=== PATIENT | male | born 1975 | race Caucasian/White ===

== ENCOUNTER 2018-04-06 16:55 | Emergency (ER) | payer OTHER ==
[~2018-04-06] VITALS: Wt 111.1 kg
[~2018-04-06 16:55] MED LIST: ADDERALL15 MG; ANAPROX DS550 MG PO; ANAPROX275 MG PO; ATARAX,VISTARIL50 MG PO; ATARAX25 MG PO; ATIVAN1 MG PO; AUGMENTIN 875 M1 TAB PO; BACTRIM DS 8001 TA1 PO; CARBIDOPA/LEVOD1 TA1 PO; CIPRODEX 0.3%-7.5 ML OT; CLARITIN10 MG PO; COMPAZINE10 MG PO; CORTISPORIN SUS10 ML OT; CYCLOBENZAPRINE10 MG PO; CYCLOBENZAPRINE5 M3 PO; DAYPRO600 M1 PO; ELIMITE 5%60 GM PO; FLAGYL500 MG PO; FLEXERIL10 MG PO; HYDROCODONE BIT1 T11 PO; KEFLEX500 MG PO; MEDROL DOSEPAK4 MG PO; MIRALAX POWDER255 GM PO; MOTRIN800 MG PO; MULTIPLE VITAMI1 CAP PO; Motrin,Rufen800 MG PO; NAPROSYN500 MG PO; PERCOCET 325 MG1 TA4 PO; PREDNISONE20 MG PO; PROCTOSOL HC RC; PROTONIX40 MG PO; PROVENTIL0.09 MG/AC IH; ROBAXIN750 MG PO; SUBOXONE 8 MG-1 EACH SL; SUBOXONE 8 MG-21 TA1 SL; SUBOXONE 8 MG-21 TA2 SL; SUBOXONE 8 MG-21 TA3; TRAMADOL HCL50 MG PO; TRIMOX500 MG PO; ULTRAM50 MG PO; VICODIN 5/500 505 MG PO; VICODIN 500 MG-1 TAB PO; VICODIN ES 7501 TAB PO; ZANTAC150 MG PO; ZITHROMAX Z PA250 MG PO; ZOFRAN 4 MG ED2 TAB PO; ZOFRAN ODT4 MG SL; ZOFRAN4 MG PO
[2018-04-06] MEDS ORDERED: NAPROSYN500 MG PO (17:06)
== END 2018-04-06 18:00 | disposition home or self-care (01) ==
LOC: ED 16:55
DX: S83.92XA Sprain of unspecified site of left knee, initial encounter (principal); S93.402A Sprain of unspecified ligament of left ankle, initial encounter; K21.9 Gastro-esophageal reflux disease without esophagitis; F14.10 Cocaine abuse, uncomplicated; F17.200 Nicotine dependence, unspecified, uncomplicated; F12.10 Cannabis abuse, uncomplicated; F11.10 Opioid abuse, uncomplicated; R03.0 Elevated blood-pressure reading, without diagnosis of hypertension; M89.9 Disorder of bone, unspecified; Z79.899 Other long term (current) drug therapy; W01.0XXA Fall on same level from slipping, tripping and stumbling without subsequent striking against object, initial encounter; Y93.89 Activity, other specified; Y92.89 Other specified places as the place of occurrence of the external cause; Y99.8 Other external cause status

== ENCOUNTER 2018-09-18 20:59 | Inpatient (IN) | payer OTHER ==
[~2018-09-18] VITALS: Ht 185.4 cm; Wt 111.1 kg
--- NOTE | ~2018-09-18 | EKG ---
[place], [place] ELECTROCARDIOGRAM REPORT NAME: KENN KRISHNAN UNIT #: [id number] ROOM: 407 DOCTOR: NADREINA DRAFT REPORT BIRTHDATE: [birth year] [facility] Test Date: 2018-09-18 Test Time: 21:37:26 Pat Name: KENN KRISHNAN Department: 4E Room: 407 Gender: M [employer]al [employer] Tech: [place] : 1975 Requested By: ALLISON GILBERT DNP Order Number: [id number] Reading MD: Paige Sauer MD Measurements Intervals [place] Rate: 74 P: 14 IL: 198 QRS: 17 QRSD: 114 T: 31 QT: 397 QTc: 441 Interpretive Statements Sinus rhythm Incomplete right bundle branch block Electronically Signed On 09-22-2018 11:08:37 PST by Paige Sauer MD CM:EKGRPT:ELECTROCARDIOGRAM REPORT 1108 ALLISON GILBERT DNP EPIPHANY DRAFT REPORT ALLISON GILBERT DNP
--- NOTE | ~2018-09-18 | EKG ---
[place], [place] ELECTROCARDIOGRAM REPORT NAME: KENN KRISHNAN UNIT #: [id number] ROOM: 407 DOCTOR: ANDREINA DRAFT REPORT BIRTHDATE: [birth year] [facility] Test Date: 2018-09-21 Test Time: 12:00:33 Pat Name: KENN KRISHNAN Department: Room: 407 2 Gender: M Crew Attendant: : 1975 Requested By: CARLIN JOAQUIN Order Number: [id number] Reading MD: Paige Sauer MD Measurements Intervals [place] Rate: 59 P: 11 IN: 270 QRS: 32 QRSD: 115 T: 38 QT: 415 QTc: 412 Interpretive Statements Sinus rhythm Prolonged IN interval Incomplete right bundle branch block ST elev, probable normal early repol pattern Electronically Signed On 09-22-2018 11:10:34 PST by Paige Sauer MD CM:EKGRPT:ELECTROCARDIOGRAM REPORT 1200 [id number] KOLBY MATIAS DRAFT REPORT CARLIN JOAQUIN DPM
[2018-09-18 21:07] VITALS: BP 144/78
[2018-09-18 21:44] LABS: BILIRUBIN NEGATIVE (NEGATIVE); BLOOD TRACE-INTACT (NEGATIVE); CLARITY CLEAR (CLEAR); COLOR YELLOW (YELLOW); GLUCOSE NEGATIVE (NEGATIVE); KETONE NEGATIVE (NEGATIVE); LEUKO ESTERASE NEGATIVE (NEGATIVE); NITRITE NEGATIVE (NEGATIVE); PH 6.5 (5.0-9.0); SPECIFIC GRAVITY 1.015 (1.005-1.030)
[2018-09-18 21:54] LABS: URINE AMPHETAMINES < 1000 (1000ng/ml); URINE BARBITURATES < 200 (200ng/ml); URINE BENZODIAZEPINES < 200 (200ng/ml); URINE CANNABINOIDS (THC) < 50 (50ng/ml); URINE COCAINE < 300 (300ng/ml); URINE METHADONE < 300 (300ng/ml); URINE OPIATES < 300 (300ng/ml)
[2018-09-18 21:55] LABS: URINE PHENCYCLIDINE < 25 (25ng/ml)
[2018-09-18 22:01] LABS: BACTERIA 1+; EPITHELIAL CELLS 0-2; MUCOUS TRACE; WBC 0-2 wbc/hpf (0-5)
[2018-09-18 22:23] LABS: BASO # 0.1 10*3/uL (0.0-0.1); BASO % 1.1 % (0.0-1.0); EOS # 0.2 10*3/uL (0.0-0.4); EOS % 1.6 % (1.0-4.0); HEMATOCRIT 43.7 % (42.0-52.0); HEMOGLOBIN 14.5 g/dl (14.0-18.0); LYMPH # 2.4 10*3/uL (1.3-4.4); LYMPH % 23.8 % (27.0-41.0); MEAN CELL VOLUME 87.1 fl (80.0-94.0); MEAN CORPUSCULAR HGB 28.9 pg (27.0-31.0); MEAN CORPUSCULAR HGB CONC 33.2 g/dl (33.0-37.0); MEAN PLATELET VOLUME 10.3 fl (9.6-12.3); MONO # 0.5 10*3/uL (0.1-1.0); NEUT # 6.8 10*3/uL (2.3-7.9); NEUT % 68.2 % (47.0-73.0); PLATELET COUNT AUTOMATED 374 10*3/uL (130-400); RED BLOOD COUNT 5.02 10*6/uL (4.50-5.90); RED CELL DISTRI WIDTH 12.7 % (0-14.5)
[2018-09-18 22:41] LABS: ALBUMIN 4.2 gm/dl (3.1-4.5); ALKALINE PHOSPHATASE 89 U/L (45-117); BUN 13 mg/dl (7-24); CHLORIDE 102 mmol/L (98-107); CREATININE 0.93 mg/dL (0.70-1.30); POTASSIUM 3.6 mmol/L (3.5-5.1); SGOT/AST 18 IU/L (3-35); SGPT/ALT 28 U/L (12-78); SODIUM 138 mmol/L (136-145)
[2018-09-18 22:45] LABS: ACETAMINOPHEN (TYLENOL) < 2.0 ug/ml (10-30); ETHYL ALCOHOL < 3.0 mg/dl (<3); TROPONIN I < 0.015 ng/ml (<0.045)
[2018-09-19] VITALS: BP 119/63
[2018-09-19 08:00] VITALS: BP 142/77
[2018-09-19 16:00] VITALS: BP 128/72
[2018-09-19 20:00] VITALS: BP 132/61
[2018-09-20] VITALS: BP 125/70
[2018-09-20 08:00] VITALS: BP 133/70
[2018-09-20 12:00] VITALS: BP 130/80
[2018-09-20 16:00] VITALS: BP 127/71
[2018-09-20 20:00] VITALS: BP 150/82
[2018-09-21] VITALS: BP 150/66
[2018-09-21 06:48] LABS: BASO # 0.1 10*3/uL (0.0-0.1); BASO % 1.6 % (0.0-1.0); EOS # 0.5 10*3/uL (0.0-0.4); EOS % 5.4 % (1.0-4.0); HEMATOCRIT 45.4 % (42.0-52.0); HEMOGLOBIN 14.7 g/dl (14.0-18.0); LYMPH # 3.1 10*3/uL (1.3-4.4); LYMPH % 35.1 % (27.0-41.0); MEAN CORPUSCULAR HGB 28.5 pg (27.0-31.0); MEAN CORPUSCULAR HGB CONC 32.4 g/dl (33.0-37.0); MEAN PLATELET VOLUME 10.5 fl (9.6-12.3); MONO # 0.4 10*3/uL (0.1-1.0); MONO % 4.6 % (3.0-9.0); NEUT # 4.6 10*3/uL (2.3-7.9); PLATELET COUNT AUTOMATED 328 10*3/uL (130-400); RED BLOOD COUNT 5.16 10*6/uL (4.50-5.90); RED CELL DISTRI WIDTH 12.5 % (0-14.5); WHITE BLOOD COUNT 8.7 10*3/uL (4.8-10.8)
[2018-09-21 07:15] LABS: CREATININE 0.93 mg/dL (0.70-1.30)
[2018-09-21 08:00] VITALS: BP 140/72
[2018-09-21 11:56] VITALS: BP 132/74
[2018-09-21 16:00] VITALS: BP 127/74
[2018-09-21 20:00] VITALS: BP 137/77
[2018-09-22] VITALS: BP 125/81
[2018-09-22 06:23] LABS: BASO # 0.1 10*3/uL (0.0-0.1); BASO % 1.4 % (0.0-1.0); EOS # 0.5 10*3/uL (0.0-0.4); HEMATOCRIT 43.1 % (42.0-52.0); HEMOGLOBIN 14.3 g/dl (14.0-18.0); LYMPH # 2.5 10*3/uL (1.3-4.4); LYMPH % 31.8 % (27.0-41.0); MEAN CELL VOLUME 86.5 fl (80.0-94.0); MEAN CORPUSCULAR HGB 28.7 pg (27.0-31.0); MEAN CORPUSCULAR HGB CONC 33.2 g/dl (33.0-37.0); MEAN PLATELET VOLUME 10.2 fl (9.6-12.3); MONO # 0.5 10*3/uL (0.1-1.0); NEUT # 4.3 10*3/uL (2.3-7.9); NEUT % 54.4 % (47.0-73.0); PLATELET COUNT AUTOMATED 314 10*3/uL (130-400); RED BLOOD COUNT 4.98 10*6/uL (4.50-5.90); RED CELL DISTRI WIDTH 12.5 % (0-14.5); WHITE BLOOD COUNT 7.8 10*3/uL (4.8-10.8)
[2018-09-22 06:35] LABS: BUN 13 mg/dl (7-24); CHLORIDE 105 mmol/L (98-107); CREATININE 0.82 mg/dL (0.70-1.30); SODIUM 140 mmol/L (136-145)
[2018-09-22 08:00] VITALS: BP 146/84
== END 2018-09-22 10:50 | disposition left against medical advice (07) | DRG 894 ==
LOC: ED 20:59 → 4E 21:32 → EDHOLD 21:32 → 4E 21:53
PROVIDERS: Emergency Medicine Emergency Medical Services; Nurse Practitioner Family; Podiatrist Primary Podiatric Medicine
DX: F11.23 Opioid dependence with withdrawal (principal); K21.9 Gastro-esophageal reflux disease without esophagitis; E66.9 Obesity, unspecified; F41.9 Anxiety disorder, unspecified; Z53.21 Procedure and treatment not carried out due to patient leaving prior to being seen by health care provider; G25.81 Restless legs syndrome; F90.9 Attention-deficit hyperactivity disorder, unspecified type; R03.0 Elevated blood-pressure reading, without diagnosis of hypertension; R82.71 Bacteriuria; R31.29 Other microscopic hematuria; Z72.0 Tobacco use; Z71.6 Tobacco abuse counseling; Z83.3 Family history of diabetes mellitus; Z68.32 Body mass index [BMI] 32.0-32.9, adult

== ENCOUNTER 2019-12-21 16:56 | Inpatient (IN) | payer OTHER ==
[~2019-12-21] VITALS: Ht 185.4 cm; Wt 117.0 kg
[2019-12-21 17:15] VITALS: BP 156/88
[2019-12-21 18:30] LABS: BASO # 0.1 10*3/uL (0.0-0.1); BASO % 1.1 % (0.0-1.0); EOS # 0.2 10*3/uL (0.0-0.4); EOS % 1.9 % (1.0-4.0); LYMPH # 2.2 10*3/uL (1.3-4.4); MEAN CELL VOLUME 89.2 fl (80.0-94.0); MEAN CORPUSCULAR HGB 29.7 pg (27.0-31.0); MEAN CORPUSCULAR HGB CONC 33.3 g/dl (33.0-37.0); MEAN PLATELET VOLUME 10.3 fl (9.6-12.3); MONO # 0.7 10*3/uL (0.1-1.0); MONO % 5.6 % (3.0-9.0); PLATELET COUNT AUTOMATED 351 10*3/uL (130-400); RED BLOOD COUNT 4.71 10*6/uL (4.50-5.90); WHITE BLOOD COUNT 12.3 10*3/uL (4.8-10.8)
[2019-12-21 18:41] LABS: INTERNATIONAL NORM RATIO 0.9 (2.0-3.5)
[2019-12-21 18:45] LABS: ALBUMIN 4.1 gm/dl (3.1-4.5); ALKALINE PHOSPHATASE 70 U/L (45-117); BUN 17 mg/dl (7-24); CHLORIDE 108 mmol/L (98-107); POTASSIUM 3.8 mmol/L (3.5-5.1); SGOT/AST 24 IU/L (3-35); SGPT/ALT 56 U/L (12-78); SODIUM 143 mmol/L (136-145); TOTAL PROTEIN 7.4 gm/dL (6.4-8.2)
[2019-12-21 18:47] LABS: ETHYL ALCOHOL < 3.0 mg/dl (<3)
[2019-12-21 19:12] LABS: URINE AMPHETAMINES < 1000 (1000ng/ml); URINE BARBITURATES < 200 (200ng/ml); URINE BENZODIAZEPINES < 200 (200ng/ml); URINE CANNABINOIDS (THC) < 50 (50ng/ml); URINE COCAINE < 300 (300ng/ml); URINE METHADONE < 300 (300ng/ml); URINE OPIATES < 300 (300ng/ml); URINE PHENCYCLIDINE < 25 (25ng/ml)
[2019-12-21 19:20] LABS: BILIRUBIN NEGATIVE (NEGATIVE); BLOOD 1+ (NEGATIVE); CLARITY CLEAR (CLEAR); COLOR YELLOW (YELLOW); GLUCOSE NEGATIVE (NEGATIVE); KETONE NEGATIVE (NEGATIVE); LEUKO ESTERASE NEGATIVE (NEGATIVE); NITRITE NEGATIVE (NEGATIVE); SPECIFIC GRAVITY 1.025 (1.005-1.030); UROBILINOGEN 0.2 E.U./dl (0.2-1.0); WBC 0-2 wbc/hpf (0-5)
[2019-12-21 20:25] VITALS: BP 150/82
[2019-12-21] MEDS ORDERED: AMPHETAMINE/DEX30 MG PO (21:08)
[2019-12-22] VITALS: BP 148/93
[2019-12-22 00:30] VITALS: BP 148/88
[2019-12-22 04:00] VITALS: BP 112/70
== END 2019-12-22 07:58 | disposition left against medical advice (07) | DRG 770 ==
LOC: ED 16:56 → EDHOLD 17:40 → 5E 18:52
PROVIDERS: Family Medicine; Internal Medicine; ADMIT Internal Medicine
DX: F11.23 Opioid dependence with withdrawal (principal); F17.210 Nicotine dependence, cigarettes, uncomplicated; F41.9 Anxiety disorder, unspecified; F90.9 Attention-deficit hyperactivity disorder, unspecified type; Z53.29 Procedure and treatment not carried out because of patient's decision for other reasons; K21.9 Gastro-esophageal reflux disease without esophagitis; E66.9 Obesity, unspecified; Z83.3 Family history of diabetes mellitus; Z71.6 Tobacco abuse counseling; Z68.34 Body mass index [BMI] 34.0-34.9, adult

== ENCOUNTER → 2020-09-05 | Outpatient (CLI) | payer OTHER ==
[~2020-09-05] MED LIST changes: +AMPHETAMINE/DEX30 MG PO
[2020-09-05 09:51] LABS: BASO # 0.1 10*3/uL (0.0-0.1); BASO % 1.4 % (0.0-1.0); EOS # 0.3 10*3/uL (0.0-0.4); EOS % 4.1 % (1.0-4.0); HEMATOCRIT 43.7 % (42.0-52.0); LYMPH % 28.6 % (27.0-41.0); MEAN CELL VOLUME 86.2 fl (80.0-94.0); MEAN CORPUSCULAR HGB 28.2 pg (27.0-31.0); MEAN CORPUSCULAR HGB CONC 32.7 g/dl (33.0-37.0); MEAN PLATELET VOLUME 10.1 fl (9.6-12.3); MONO # 0.6 10*3/uL (0.1-1.0); NEUT # 4.1 10*3/uL (2.3-7.9); NEUT % 57.6 % (47.0-73.0); PLATELET COUNT AUTOMATED 328 10*3/uL (130-400); RED BLOOD COUNT 5.07 10*6/uL (4.50-5.90); RED CELL DISTRI WIDTH 12.8 % (0-14.5); WHITE BLOOD COUNT 7.1 10*3/uL (4.8-10.8)
[2020-09-05 10:21] LABS: ALBUMIN 3.9 gm/dl (3.1-4.5); ALKALINE PHOSPHATASE 73 U/L (45-117); BILIRUBIN, DIRECT 0.1 mg/dL (0.0-0.2); BUN 16 mg/dl (7-24); CHLORIDE 104 mmol/L (98-107); CREATININE 0.94 mg/dL (0.70-1.30); SGOT/AST 19 IU/L (3-35); SGPT/ALT 34 U/L (12-78); SODIUM 141 mmol/L (136-145); TOTAL PROTEIN 7.7 gm/dL (6.4-8.2)
[2020-09-06 06:07] LABS: HEP B CORE AB, IGM Negative (Negative); HEPATITIS B SURFACE AG Negative (Negative); HEPATITIS C VIRUS ANTIBODY <0.1 s/co (0.0-0.9)
[2020-09-08 17:11] LABS: TB1 Ag VALUE 0.06 IU/mL (.)
== END | disposition home or self-care (01) ==
LOC: LAB 09:28
PROVIDERS: ATTEND Registered Nurse Critical Care Medicine
DX: F11.11 Opioid abuse, in remission (principal); F14.11 Cocaine abuse, in remission; F15.11 Other stimulant abuse, in remission

== ENCOUNTER 2021-01-20 10:27 | Emergency (ER) | payer OTHER ==
[2021-01-20] MEDS ORDERED: NAPROXEN250 MG PO (11:55)
[2021-01-20] MEDS ORDERED: TYLENOL325 M1 PO (11:55)
[2021-01-20] MEDS ORDERED: AMOXICILLIN500 M3 PO (11:55)
== END 2021-01-20 12:10 | disposition home or self-care (01) ==
LOC: ED 10:27
DX: K02.9 Dental caries, unspecified (principal); F41.9 Anxiety disorder, unspecified; K21.9 Gastro-esophageal reflux disease without esophagitis; Z98.890 Other specified postprocedural states; Z79.899 Other long term (current) drug therapy

== ENCOUNTER 2022-07-08 17:25 | Emergency (ER) | payer OTHER ==
[~2022-07-08] VITALS: Ht 185.4 cm; Wt 115.7 kg
[~2022-07-08 17:25] MED LIST changes: +AMOXICILLIN500 M3 PO; +NAPROXEN250 MG PO; +TYLENOL325 M1 PO
[2022-07-09] MEDS ORDERED: NAPROSYN500 MG PO (11:21)
== END 2022-07-08 20:28 | disposition home or self-care (01) ==
LOC: ED 17:25
DX: S82.832A Other fracture of upper and lower end of left fibula, initial encounter for closed fracture (principal); F17.200 Nicotine dependence, unspecified, uncomplicated; Z79.2 Long term (current) use of antibiotics; Z79.899 Other long term (current) drug therapy; Z98.890 Other specified postprocedural states; W01.0XXA Fall on same level from slipping, tripping and stumbling without subsequent striking against object, initial encounter; Y93.01 Activity, walking, marching and hiking; Y92.828 Other wilderness area as the place of occurrence of the external cause; Y99.8 Other external cause status

== ENCOUNTER → 2022-07-10 | Outpatient (CLI) | payer OTHER | END | disposition home or self-care (01) | LOC: ORTHO 02:01 | PROVIDERS: ATTEND Orthopaedic Surgery | DX: S82.402A Unspecified fracture of shaft of left fibula, initial encounter for closed fracture (principal); M79.89 Other specified soft tissue disorders; X58.XXXA Exposure to other specified factors, initial encounter ==

== ENCOUNTER → 2022-07-17 | Outpatient (CLI) | payer OTHER | END | disposition home or self-care (01) | LOC: ORTHO 02:37 | PROVIDERS: ATTEND Orthopaedic Surgery | DX: S82.65XD Nondisplaced fracture of lateral malleolus of left fibula, subsequent encounter for closed fracture with routine healing (principal); X58.XXXD Exposure to other specified factors, subsequent encounter ==